=== PATIENT | male | born 1990 | race Caucasian/White ===

== ENCOUNTER 2019-02-17 21:12 | Emergency (ER) | payer MEDICAID ==
[~2019-02-17] VITALS: Ht 185.4 cm; Wt 172.3 kg
[~2019-02-17 21:12] MED LIST: ACET500C5 PO; CEPH-443 PO; HYDR25TA6 PO; IBUP800T48 PO; LISI-471 PO; PHEN-538 PO; SULF1TAB31 PO
[2019-02-17 21:19] VITALS: Ht 185.4 cm; Wt 172.3 kg
[2019-02-17] MEDS ORDERED: ACETAMINOPHEN 500 MG TAB PO STA (21:30)
[2019-02-17] MEDS ORDERED: morphine 4 MG/ML VIAL IV STA (21:30)
[2019-02-17] MEDS ORDERED: SOD CHLORIDE 0.9% 1,000 ML IV STA (21:30)
[2019-02-17] MEDS ORDERED: IBUPROFEN 800 MG TAB PO ONE (21:30)
[2019-02-17] MEDS ORDERED: ONDANSETRON 4 MG INJ IV STA (21:30)
[2019-02-17] MEDS ORDERED: SODIUM CHLORIDE 0.9% 1L BAG IV* STA (21:38)
[2019-02-17] MEDS ORDERED: CEFTRIAXONE 1 GM/50 ML (PMX) 50 ML IVPB ONE (23:00)
[2019-02-17 23:30] VITALS: BP 138/73; PULSE 93; RESP 18
--- NOTE | 2019-02-17 23:52 | ERD ---
ER Documentation Chief Complaint Chief Complaint C/O MILLER, GENERALIZED CP, FEVER AND CHILLS X2 DAYS, LT LOWER LEG BRUISES HPI This is a 29-year-old male with no past medical history. The patient indicates for the past 48 hours he has been experiencing generalized myalgias, palpitations, bandlike headache, frequency urgency and dysuria as well as tactile fever shaking and chills. He did indicate prior to the onset of symptoms he had consumed a significant amount of alcohol with friends. He noticed some bruising over the left lower extremity but denies any specific trauma that occurred. He denies any pain of the left leg. He denies any hemoptysis hematemesis or melanotic stools. He did take Motrin and Tylenol 12 hours prior to arrival. He complains of a sore throat. He denies any neck pain. He states he does not experience any confusion, no recent travel, no shortness of breath, no recent hospitalizations or sick contacts. ROS All systems reviewed and are negative except as per history of present illness. Allergies Allergies: Coded Allergies: No Known Allergy (Unverified , 02/17/19) PMhx/Soc Medical and Surgical Hx: pt denies Medical Hx, pt denies Surgical Hx Hx Alcohol Use: No Hx Substance Use: Yes Hx Tobacco Use: No Smoking Status: Former smoker Physical Exam Vitals Vital Signs Date Temp Pulse Resp B/P (MAP) Pulse Ox O2 O2 Flow FiO2 Time Delivery Rate 02/17/19 98.2 23:23 02/17/19 109 26 156/84 92 Room Air 22:40 (108) 02/17/19 100.6 125 22 176/89 99 21:19 (118) Physical Exam Constitutional:Well-developed. Well-nourished. HEENT:Normocephalic. Atraumatic.Pupils were equal round reactive to light. Moist mucous membranes.exudates in the right tonsil with erythema in both tonsils. Uvula was midline. No trismus. No macroglossia. Neck: No nuchal rigidity. No lymphadenopathy. No posterior cervical spine tenderness or step-offs. Respiratory: Not using accessory muscles of respiration.Lungs were clear to auscultation bilaterally. No rhonchi. No rales. No wheezing. Cardiovascular: Tachycardic with regular rhythm.No murmurs. No rubs were ap preciated.S1, S2 normal. Distal pulses are palpable 2+ bilaterally. GI: Abdomen was obese so exam is limited due to body habitus. Nontender. Non Distended. No pulsatile abdominal masses or bruits. No rebound. No guarding. Bowel sounds were present and normal. Muscle skeletal: Full range of motion of both the upper and lower extremities bilaterally.Normal muscle tone.No assymetrical calf tenderness or swelling. Skin: No petechia, no purpura. No lesions on the palms or the soles of the feet. No maculopapular rash. Ecchymosis over the distal anterior third of the left lower extremity. Homans sign negative bilaterally. NEURO: Patient was alert, awake, orientated x3.No facial droop. Gait observed and normal with no ataxia.Speech had regular rate and rhythm. No focal neurological deficits. Result Diagram: 02/17/19214202/17/192142 Results 24 hrs Laboratory Tests Test 02/17/19 21:41 02/17/19 21:43 POC Venous Lactate 1.1 mmol/L White Blood Count 13.5 10^3/ul Red Blood Count 4.94 10^6/ul Hemoglobin 13.1 g/dl Hematocrit 41.5 % Mean Corpuscular Volume 84.0 fl Mean Corpuscular Hemoglobin 26.5 pg Mean Corpuscular Hemoglobin Concent 31.6 g/dl Red Cell Distribution Width 14.6 % Platelet Count 224 10^3/UL Mean Platelet Volume 10.9 fl Immature Granulocytes % 0.300 % Neutrophils % 84.4 % Lymphocytes % 8.1 % Monocytes % 7.0 % Eosinophils % 0.0 % Basophils % 0.2 % Nucleated Red Blood Cells % 0.0 /100WBC Immature Granulocytes # 0.040 10^3/ul Neutrophils # 11.4 10^3/ul Lymphocytes # 1.1 10^3/ul Monocytes # 0.9 10^3/ul Eosinophils # 0.0 10^3/ul Basophils # 0.0 10^3/ul Nucleated Red Blood Cells # 0.0 10^3/ul Prothrombin Time 14.3 Sec Prothrombin Time Ratio 1.1 INR International Normalized Ratio 1.10 Activated Partial Thromboplast Time 31.7 Sec Urine Color MEMO Urine Clarity SLIGHTLY CLOUDY Urine pH 6.0 Urine Specific [place] 1.020 Urine Ketones NEGATIVE mg/dL Urine Nitrite NEGATIVE mg/dL Urine Bilirubin NEGATIVE mg/dL Urine Urobilinogen 2+ mg/dL Urine Leukocyte Esterase 3+ Madeline/ul Urine Microscopic RBC 11 /HPF Urine Microscopic WBC 115 /HPF Urine Squamous Epithelial Cells FEW /HPF Urine Amorphous Crystals FEW /HPF Urine Bacteria FEW /HPF Urine Mucus FEW /HPF Urine Hemoglobin NEGATIVE mg/dL Urine Glucose NEGATIVE mg/dL Urine Total Protein 1+ mg/dl Sodium Level 140 mmol/L Potassium Level 3.4 mmol/L Chloride Level 101 mmol/L Carbon Dioxide Level 28 mmol/L Anion Gap 11 Blood Urea Nitrogen 13 mg/dl Creatinine 0.87 mg/dl Est Glomerular Filtrat Rate mL/min > 60 mL/min Glucose Level 107 mg/dl Calcium Level 9.0 mg/dl Total Bilirubin 0.9 mg/dl Direct Bilirubin 0.00 mg/dl Indirect Bilirubin 0.9 mg/dl Aspartate Amino Transf (AST/SGOT) 61 IU/L Alanine Aminotransferase (ALT/SGPT) 116 IU/L Alkaline Phosphatase 162 IU/L Troponin I 0.027 ng/ml Total Protein 8.9 g/dl Albumin 4.7 g/dl Globulin 4.20 g/dl Albumin/Globulin Ratio 1.11 Amylase Level 71 U/L Lipase 87 U/L Ethyl Alcohol Level < 10.0 mg/dl Current Medications Medications Dose Sig/Bing Start Time Status Last (Trade) Ordered Route PRN Stop Time Admin Dose Reason Admin Sodium 1,000 ml @ Q1H STAT 02/17/19 DC 02/17/19 Chloride 1,000 mls/hr IV 21:30 02/17/19 21:59 22:29 Morphine 4 mg ONCE STAT 02/17/19 DC 02/17/19 Sulfate IV 21:30 02/17/19 22:01 (morphine) 21:35 Ondansetron 4 mg ONCE STAT 02/17/19 DC 02/17/19 HCl (Zofran IV 21:30 02/17/19 22:01 Inj) 21:35 1,000 mg ONCE STAT 02/17/19 DC 02/17/19 Acetaminophen PO 21:30 02/17/19 22:00 (Tylenol 21:35 Tab) Ibuprofen 800 mg ONCE ONCE 02/17/19 DC 02/17/19 (Motrin) PO 21:30 02/17/19 22:01 21:35 Sodium 2,400 ml BOLUS OVER 2 02/17/19 DC 8/6/19 Chloride HOURS STAT 21:38 02/17/19 22:00 (NS) IV* 21:40 Ceftriaxone 50 ml @ ONCE ONCE 02/17/19 DC 02/17/19 Sodium 100 mls/hr IVPB 23:00 02/17/19 23:22 23:29 Procedures/MDM This is a 29-year-old who presented to the emergency department with Sirs criteria. The patient was immediately placed in a bus driver/monitor continuous pulse oximetry and IV access was established by nursing staff. The patient's lactic acid was within normal limits and therefore the patient was not septic. 12 Lead EKG tracing ordered and reviewed by myself showed: Sinus tachycardia 117 bpm and no arrhythmia. SC interval normal. QRS duration normal. No ST segment elevation No ST segment depression. No changes consistent with acute ischemia. I obtained a chest radiograph reviewed by myself the radiologist and there is no evidence of pneumonia as there were no infiltrates. There is no pneumothorax or pleural effusions. The patient did have ecchymosis of the lower extremity but there is no throm bocytopenia no coagulopathic or physical exam findings to suggest DIC. I did indicate this could have occurred while the patient was clinically intoxicated several days ago and there is no evidence of bony abnormality so no radiographic imaging was obtained. The patient leukocytosis with a left shift and I did feel symptoms are secondary to urinary tract infection. There was a significant amount of diarrhea in the patient's urine. He did receive IV ceftriaxone after blood culture and urine c ultures were obtained. There was also hematuria. Ultrasound of the kidneys indicated no evidence of hydronephrosis. The patient received antipyretics. He was also given intravenous morphine and Zofran for analgesia control. The patient had significant improvement of symptoms and stated he felt comfortable being discharged home and will be discharged home with Keflex. The patient did have an exudate on his tonsil and a rapid strep test that was performed. However utilizing the center criteria I felt this is more likely a viral etiology versus a bacterial process. There is no evidence of Johnathon angina. Critical Care: Time: 45 minutes Treatments/Evaluations: Close monitoring and treatment of unstable vital signs, cardiorespiratory, and neurologic status, while maintaining tight balance of fluid, respiratory, and cardiac interventions. Time does not include performing any of the above billable procedures. Departure Diagnosis: Primary Impression: Pyelonephritis Additional Impressions: Ecchymosis Pharyngitis, acute Pharyngitis/tonsillitis etiology: unspecified etiology Qualified Codes: J02.9 - Acute pharyngitis, unspecified Condition: PAWEL Snider MD Feb 17, 2019 23:52
[2019-02-17] MEDS ORDERED: KETOROLAC 30 MG INJ IV STA (23:57)
== END 2019-02-18 00:17 | disposition home or self-care (01) ==
LOC: E/R 21:12
DX: N12 Tubulo-interstitial nephritis, not specified as acute or chronic (principal); J02.9 Acute pharyngitis, unspecified; R07.9 Chest pain, unspecified; Z87.891 Personal history of nicotine dependence
CPT/HCPCS: 71045; 76775; 80053; 80307; 81001; 82150; 83605; 83690; 84484; 85025; 85610; 85730; 87040; 87086; 87880; 93005; 96361; 96374; 96375; J0696; J1885; J2270; J2405; J7030; Z7502; Z7610

== ENCOUNTER 2019-02-20 06:29 | Inpatient (IN) | payer MEDICAID ==
[~2019-02-20] VITALS: Ht 185.4 cm; Wt 171.6 kg
[2019-02-20] MEDS ORDERED: SODIUM CHLORIDE 0.9% 1L BAG IV* STA (06:59)
[2019-02-20] MEDS ORDERED: ACETAMINOPHEN 325 MG TAB PO STA (06:59)
[2019-02-20] MEDS ORDERED: VANCOMYCIN 1 GM (PMX) 250 ML IVPB STA (06:59)
[2019-02-20] MEDS ORDERED: MEROPENEM 1 GM/50ML(PMX) 50 ML IVPB STA (06:59)
[2019-02-20] MEDS ORDERED: CIPROFLOXACIN 400MG/D5W 200 ML IVPB STA (06:59)
--- NOTE | 2019-02-20 07:41 | ERD ---
ER Documentation Chief Complaint Chief Complaint BODYACHES, FEVER, TACHYCARDIC, SOB, LOW O2 SAT, REDNESS ON LEFT LOWER EXT HPI 29-year-old male with history of alcohol abuse, drinks about two 12 packs of beer per day, presents the ED complaining of fever, shortness of breath and palpitations. Patient was seen in the ED on 02/17/2019 for similar symptoms and diagnosed with pyelonephritis and discharged with antibiotics but symptoms have been worsening. Mild nonproductive cough. No hemoptysis. In triage he complained of chest pain but he further qualifies this feeling of shortness of breath but not actual pain. Denies abdominal pain, nausea, vomiting, diarrhea or constipation. Denies dysuria, polyuria, hematuria or flank pain. Mild lower extremity swelling with worsening, red, nonpainful rash on his left leg. Denies headache or neck pain. Subjective fevers and chills. ROS All systems reviewed and are negative except as per history of present illness. Medications Home Meds Active Scripts Sulfamethoxazole/Trimethoprim* (Bactrim Ds* Tablet) 1 Each Tablet, 1 TAB PO BID for 10 Days, #20 TAB Prov:CARMEN LY MD 02/22/19 Hydrochlorothiazide* (Hydrochlorothiazide*) 25 Mg Tab, 25 MG PO DAILY@0600 for 30 Days, #30 TAB For blood pressure Prov:CARMEN LY MD 02/22/19 Lisinopril* (Lisinopril*) 20 Mg Tablet, 40 MG PO DAILY for 30 Days, #30 TAB 1 Refill For blood pressure Prov:CARMEN LY MD 02/22/19 Phenazopyridine Hcl* (Pyridium*) 200 Mg Tab, 200 MG PO TID PRN for URINARY PAIN, #6 TAB Prov:PAWEL MUNOZ MD 02/17/19 Acetaminophen* (Tylophen*) 500 Mg Capsule, 2 CAP PO Q8H PRN for PAIN AND OR ELEVATED TEMP, #30 CAP Prov:PAWEL MUNOZ MD 02/17/19 Ibuprofen* (Motrin*) 800 Mg Tab, 800 MG PO Q6H PRN for PAIN AND OR ELEVATED TEMP, #30 TAB Prov:PAWEL MUNOZ MD 02/17/19 Discontinued Scripts Cephalexin* (Keflex*) 500 Mg Capsule, 500 MG PO QID for 10 Days, CAP Prov:PAWEL MUNOZ MD 02/17/19 Allergies Allergies: Coded Allergies: No Known Allergy (Unverified , 02/20/19) PMhx/Soc History of Surgery: No Anesthesia Reaction: No Hx Neurological Disorder: No Hx Respiratory Disorders: No Hx Cardiac Disorders: No Hx Psychiatric Problems: No Hx Miscellaneous Medical Probl: No Hx Alcohol Use: No Hx Substance Use: Yes Hx Tobacco Use: Yes Smoking Status: Current every day smoker FmHx No heart disease, stroke or cancer. Physical Exam Vitals Temp:100.7 Pulse:120 RR: 18 BP: 177/98 Pulse Ox: 84% Physical Exam Const: Mild distress Head: Atraumatic Eyes: Normal Conjunctiva ENT: Normal External Ears, Nose and Mouth. Neck: Full range of motion. No meningismus. Resp: Clear to auscultation bilaterally Cardio: Regular rate and rhythm, no murmurs Abd: Soft, obese, non tender, non distended. Normal bowel sounds Skin: No petechiae or rashes Back: No midline or flank tenderness Ext: LLE erythema and mild tenderness. No crepitus. Neur: Awake and alert Psych: Normal Mood and Affect Result Diagram: 02/22/19 0538 02/22/19 0538 Results 24 hrs Laboratory Tests Test 02/20/19 06:58 02/20/19 07:02 02/20/19 08:00 02/20/19 08:55 White Blood Count 10.2 10^3/ul Red Blood Count 4.28 10^6/ul Hemoglobin 11.5 g/dl Hematocrit 35.8 % Mean Corpuscular 83.6 fl Volume Mean Corpuscular 26.9 pg Hemoglobin Mean Corpuscular 32.1 g/dl Hemoglobin Concent Red Cell 14.7 % Distribution Width Platelet Count 226 10^3/UL Mean Platelet 11.3 fl Volume Immature 0.700 % Granulocytes % Neutrophils % 77.4 % Lymphocytes % 13.2 % Monocytes % 8.4 % Eosinophils % 0.0 % Basophils % 0.3 % Nucleated Red Blood 0.0 /100WBC Cells % Immature 0.070 10^3/ul Granulocytes # Neutrophils # 7.9 10^3/ul Lymphocytes # 1.4 10^3/ul Monocytes # 0.9 10^3/ul Eosinophils # 0.0 10^3/ul Basophils # 0.0 10^3/ul Nucleated Red Blood 0.0 10^3/ul Cells # Prothrombin Time 14.9 Sec Prothrombin Time 1.2 Ratio INR International 1.16 Normalized Ratio Activated 37.4 Sec Partial Thromboplas t Time D-Dimer 799.23 ng/ml D-Dimer Comment Sodium Level 138 mmol/L Potassium Level 3.1 mmol/L Chloride Level 99 mmol/L Carbon Dioxide 31 mmol/L Level Anion Gap 8 Blood Urea Nitrogen 10 mg/dl Creatinine 0.82 mg/dl Est Glomerular > 60 mL/min Filtrat Rate mL/min Glucose Level 142 mg/dl Calcium Level 8.7 mg/dl Total Bilirubin 1.2 mg/dl Direct Bilirubin 0.00 mg/dl Indirect Bilirubin 1.2 mg/dl Aspartate Amino 58 IU/L Transf (AST/SGOT) Alanine 117 IU/L Aminotransferase (A LT/SGPT) Alkaline 165 IU/L Phosphatase Troponin I 0.049 ng/ml C-Reactive Protein 22.4 mg/dl B-Type Natriuretic 937 PG/ML Peptide Total Protein 8.1 g/dl Albumin 4.1 g/dl Globulin 4.00 g/dl Albumin/Globulin 1.02 Ratio POC Venous Lactate 0.9 mmol/L Urine Color YELLOW Urine Clarity CLEAR Urine pH 7.0 Urine Specific 1.003 [place] Urine Ketones NEGATIVE mg/dL Urine Nitrite NEGATIVE mg/dL Urine Bilirubin NEGATIVE mg/dL Urine Urobilinogen 2+ mg/dL Urine Leukocyte NEGATIVE Madeline/ul Esterase Urine Hemoglobin NEGATIVE mg/dL Urine Glucose NEGATIVE mg/dL Urine Total Protein NEGATIVE mg/dl Lactic Acid Level 1.1 mmol/L Current Medications Medications Dose Sig/Bing Start Time Status Last (Trade) Ordered Route PRN Stop Time Admin Dose Reason Admin 650 mg ONCE STAT 02/20/19 DC 02/20/19 Acetaminophen PO 06:59 02/20/19 07:13 (Tylenol 07:02 Tab) Sodium 2,400 ml BOLUS OVER 2 02/20/19 DC 02/20/19 Chloride HOURS STAT 06:59 02/20/19 07:13 (NS) IV* 07:02 Vancomycin 250 ml @ ONCE STAT 02/20/19 DC 02/20/19 HCl 125 mls/hr IVPB 06:59 02/20/19 08:08 08:58 50 ml @ ONCE STAT 02/20/19 DC 02/20/19 Meropenem/Sod 100 mls/hr IVPB 06:59 02/20/19 07:56 ium Chloride 07:28 200 ml @ ONCE STAT 02/20/19 DC 02/20/19 Ciprofloxacin 200 mls/hr IVPB 06:59 02/20/19 07:13 / Dextrose 07:58 Furosemide 20 mg ONCE ONCE 02/20/19 DC 02/20/19 (Lasix) IV 08:00 02/20/19 07:55 08:01 Potassium 40 meq ONCE ONCE 02/20/19 DC 02/20/19 Chloride PO 08:30 02/20/19 08:10 (Potassium 08:31 Chloride Pwd/Soln) IV Flush 10 ml STK-MED 02/20/19 DC 02/20/19 (NS 10 ml) ONCE .ROUTE 08:27 02/20/19 08:51 08:28 Sodium 100 ml @ ud STK-MED 02/20/19 DC 02/20/19 Chloride ONCE .ROUTE 08:27 02/20/19 08:51 08:28 Iohexol 100 ml @ ud STK-MED 02/20/19 DC 02/20/19 ONCE .ROUTE 08:27 02/20/19 08:52 08:28 Procedures/MDM DOCUMENTS REVIEWED: ED nurse, prior ED EKG: Time: 07:15. Sinus tachycardia. Ventricular rate 111. Normal NV and QRS. No acute ST segment elevation or depression. No ectopy. My Interpretation 3 LEAD RHYTHM STRIP INTERPRETATION: Time: 08:19. Sinus tachycardia. Ventricular rate 104. No ectopy. Indication: CHF. IMAGING: PROCEDURE: XR Chest. CLINICAL INDICATION: shortness of breath TECHNIQUE: Single portable view of the chest was obtained COMPARISON: None FINDINGS: There is mild cardiomegaly. There is moderate pulmonary vascular congestion. There are bilateral perihilar and lower lobe infiltrates, right greater than left. There is no pleural effusion.. There is no pneumothorax. RPTAT: AA IMPRESSION: Mild cardiomegaly with moderate pulmonary vascular congestion. .Gennaro Huddleston MD, MD Date Time Electronically viewed and signed by .Gennaro Huddleston MD, MD on 02/20/2019 07:26 .S/ PROCEDURE: US DVT. CLINICAL INDICATION: Swelling. Pain. TECHNIQUE: Multiple longitudinal and transverse images of the left lower extremity veins were obtained with saldaña scale and color Doppler imaging. 2D grayscale measurements with compression, color Doppler flow, and augmentation w as performed. COMPARISON: None. FINDINGS: The left common femoral, femoral and popliteal veins are patent and fully compressible. Color flow demonstrates normal filling of the vessel lumen. Normal waveforms are visualized and there is normal response to augmentation. The calf veins are equally normal. Incidental note is made of a prominent left inguinal lymph node measuring 12 mm in short axis. IMPRESSION: No evidence of acute deep venous thrombosis of the left lower extremity. RPTAT: QQ .Ashleigh Barrientos MD, MD Date Time Electronically viewed and signed by .Ashleigh Barrientos MD, on 02/20/2019 08:00 .T/ PROCEDURE: CTA Chest and pulmonary angiogram. CLINICAL INDICATION: Chest pain and shortness of breath. TECHNIQUE: CT scan of the chest and CT pulmonary angiogram was performed on a multidetector high-resolution CT scanner. High-resolution thin slice coronal and sagittal imaging was obtained from the axial source images. 3-D volumetric rendered post processing was performed as well. The patient was examined following the uncomplicated intravenous administration of 100 cc of Omnipaque- 300. The images were reviewed on a PACS workstation. The total exam CTDI equals 49.29, 19.99 mGy, and the total exam DLP equals 717 mGy-cm. DICOM images are available. One or more of the following dose reduction techniques were utilized: 1.) Automated exposure control 2.) Adjustment of the mA +/- kV according to patient's size 3.) Use of iterative reconstruction technique. COMPARISON: No prior studies are available for comparison. FINDINGS: CT chest: Patchy bilateral air space opacities. Findings are likely infectious or inflammatory in etiology (i.e. pulmonary edema, multifocal pneumonia, pulmonary hemorrhage). The mediastinum is unremarkable without evidence for mass or lymphadenopathy. The vascular structures of the mediastinum are normal in course and caliber. The heart size is mildly enlarged without pericardial thickening or effusion. The axillary, subpectoral, and supraclavicular regions are unremarkable. The surrounding chest wall is unremarkable. Imaging obtained through the upper abdomen is equally unremarkable. The osseous structures are unremarkable. CT pulmonary angiogram: There is poor contrast opacification of the pulmonary arteries secondary. The pulmonary arteries are normal in caliber and morphology. No filling defect is present to suggest pulmonary embolism. There is no evidence for pulmonary arterial hypertension. IMPRESSION: 1. No evidence for pulmonary embolism.. 2. Mild cardiomegaly. 3. Patchy bilateral air space opacities. Findings are likely infectious or inf lammatory in etiology (i.e. pulmonary edema, multifocal pneumonia, pulmonary hemorrhage). RPTAT: AA Physician Bill Date Time Electronically viewed and signed by Scott Payne Physician on 02/20/2019 09:12 NS/ MEDICAL DECISION MAKIN-year-old male with history of alcohol abuse, drinks about two 12 packs of beer per day, presents the ED complaining of fever, shortness of breath and palpitations. CBC is negative for leukocytosis, bandemia, anemia or thrombocytopenia. Chemistry significant for hypokalemia but no renal insufficiency or hyperglycemia. LFTs remarkable for transaminitis and hyperbilirubinemia. BNP is elevated at 937. CRP is elevated at 22.4. [id number] lactate is 0.9 mmol/L. D-dimer is elevated at 799.23. Troponin was in the reference range at 0.049. EKG reveals sinus tachycardia with no acute ischemic changes or ectopy. Chest x-ray shows cardiomegaly and bilateral interstitial infiltrates consistent with volume overload and congestive heart failure. Cardiac echo reveals normal ejection fraction. Patient presents with multiple criteria for systemic inflammatory response syndrome but no source of infection is definitively identified. No elevated lactate, hypotension or criteria septic shock. Normal saline 30 cc/kg fluid bolus was initially ordered but discontinued after chest x-ray showed volume overload and Lasix 20 mg IV was given. Broad-spectrum antibiotics administered after cultures. Patient with rash to left lower extremity of uncertain etiology. Venous Doppler lower extremity is negative. Possible cellulitis but no no signs of necrotizing fasciitis or ascending lymphangitis. Chest CT reveals bilateral interstitial infiltrates and as the echo is negative likely infectious in etiology. No pulmonary embolism. Patient's infectious symptoms have not stabilized and the patient is at risk of rapid decompensation. The patient will be admitted for cardiology consultation, antibiotic therapy, and infectious source control. Severe Sepsis criteria: Infectious source: Unclear, pneumonia vs cellulitis End organ damage indicated by: Acute Resp Failure (sat < 92% w/o oxygen) Sepsis Management: Time of recognition of severe sepsis: 637 Within 1 hours of recognition: Blood cultures x 2 before broad-spectrum antibiotics: Yes 30 ml/kg NS bolus initiated but discontinued after chest x-ray showed volume overload. Initial lactate 0.9 mils per liter Repeat lactate Not indicated as initial lactate < 2.0 Septic Shock Assessment: Any lactic acid > 4.0 No Persistent hypotension (SBP < 90 or 40 mmHg drop, MAP < 65) despite 30 mL/kg IV fluid bolus No A focused sepsis perfusion/reperfusion reassessment examination was performed post 30ml/kg bolus @ : 08:55 Temp [], BP 175/105, HR 106, RR 18, Pox 98% Persistent Hypotension Treatment: Comfort care No Hypotension caused by: pt. baseline, med-induced, erroneous value, condition other than infection No Refusal by patient/decision maker for: blood draw, IVF, Antibiotics, Pressors No Central line not indicated Critical Care Time: 35 minutes Treatments/Evaluations: Close monitoring and treatment of unstable vital signs, cardiorespiratory, and neurologic status, while maintaining tight balance of fluid, respiratory, and cardiac interventions. This includes the administration of emergency fluid management while maintaining close respiratory support as well as the provision of immediate and broad-spectrum antibiotic therapy, while performing a simultaneous assessment for possible sources in order to direct ta rgeted therapy. This time includes discussing the case with the patient and the patient's family. This time also includes the consideration for invasive and chemical support to prevent cardiopulmonary collapse. This time does not include all procedures stated elsewhere in this record. This time also includes reviewing old records, labs and radiological studies. This time includes examining and re-examining the patient. Additionally, this time also includes arranging care with admitting and consulting physicians. CALLS/CONSULTS: Dr. Barber. Will consult on cardiac echo. PATIENT CARE TRANSITIONED: Time: 838, Dr. Quinonez. Counseled patient regarding diagnosis, diagnostic results and plan for admission. Departure Diagnosis: Primary Impression: Fever Fever type: unspecified Qualified Codes: R50.9 - Fever, unspecified Additional Impressions: Pneumonia Pneumonia type: due to unspecified organism Laterality: bilateral Lung location: unspecified part of lung Qualified Codes: J18.9 - Pneumonia, unspecified organism Cellulitis of left lower extremity Sepsis Sepsis type: sepsis due to unspecified organism Sepsis acute organ dys function status: without acute organ dysfunction Qualified Codes: A41.9 - Sepsis, unspecified organism Condition: Serious MARIANN BRIONES MD Feb 20, 2019 07:41
[2019-02-20] MEDS ORDERED: FUROSEMIDE 20 MG INJ IV ONE ×2 (08:00→13:30)
[2019-02-20] MEDS ORDERED: IOHEXOL 100 ML ONE (08:27)
[2019-02-20] MEDS ORDERED: SOD CHLORIDE 0.9% 100 ML ONE (08:27)
[2019-02-20] MEDS ORDERED: POTASSIUM CHLORIDE 20 MEQ POWDER FOR ORAL SOLN PO ONE (08:30)
[2019-02-20] MEDS ORDERED: ONDANSETRON 4 MG INJ IV PRN (09:30)
[2019-02-20] MEDS ORDERED: ACETAMINOPHEN 325 MG TAB PO PRN ×2 (09:30→21:30)
--- NOTE | 2019-02-20 09:48 | RADRPT ---
Echocardiogram Report Patient Name: MORENA WHITEHEADPatient ID: [id number] : 1990 (29y 1m)Study Date: 02/20/2019 8:58:34 AM Gender: MAccession #: [id number] Tech: NathanJaya Webster RODO Location: [facility] Ref.Physician: MARIANN BRIONES Height(Cm): BSA: Weight(Kg): Quality: Technically Difficult StudyOrder Physician: MARIANN BRIONES Account #: Procedures: Echocardiographic Report: Transthoracic echocardiogram with complete 2D, M-Mode, and doppler examination. Indications: Congestive Heart Failure. Measurements: 2D/M Mode Doppler Measurement Value Normal Range Measurement Value Normal Range LVIDd 2D 5.1 [ 4.2 - 5.8 ] cm AV Peak Mushtaq 1.3 [ 100.0 - 170.0 ] cm/sec LVIDs 2D 3.2 [ 2.5 - 4.0 ] cm AV Peak PG 7.0 [ 2.0 - 9.0 ] mmHg LVPWd 2D 1.1 [ 0.6 - 1.0 ] cm LVOT Peak Mushtaq 1.1 [ 70.0 - 110.0 ] cm/sec IVSd 2D 1.2 [ 0.6 - 1.0 ] cm LVOT Peak PG 5.0 [ 2.0 - 6.0 ] mmHg AoR Diam 2D 3.2 [ 2.6 - 3.4 ] cm Lat E` Mushtaq 0.2 [ 10.0 - 15.0 ] cm/sec EDV 2D 122.0 [ 62.0 - 150.0 ] ml Med E` Mushtaq 0.1 cm/sec ESV 2D 40.0 [ 21.0 - 61.0 ] ml TR Peak Mushtaq 2.4 [ 100.0 - 280.0 ] cm/sec EF 2D 67.2 [ 52.0 - 72.0 ] percent TR Peak PG 23.0 mmHg LA Dimen 2D 4.2 [ 3.0 - 4.0 ] cm RVSP 26.0 [ 10.0 - 36.0 ] mmHg RA Pressure 3.0 mmHg Findings: Left Ventricle: Normal left ventricular systolic function. Normal left ventricular cavity size. Mild concentric left ventricular hypertrophy. Ejection fraction is visually estimated at 60 %. Tissue Doppler/Mitral Doppler indices are within normal limits. Right Ventricle: Normal right ventricular size. Normal right ventricular systolic function. Left Atrium: The left atrium is normal in size. Right Atrium: The right atrium is normal in size. Mitral Valve: Normal appearance of the mitral valve. Normal appearance and function of the mitral valve with trace physiologic regurgitation. Aortic Valve: Normal appearance of the aortic valve. No significant aortic stenosis or insufficiency. Tricuspid Valve: Normal appearance and function of the tricuspid valve with trace physiologic regurgitation. The estimated Peak RVSP is 26 mmHg. Pulmonic Valve: Pulmonic valve not well visualized. Pericardium: Normal pericardium with no significant pericardial effusion. Aorta: Normal aortic root. IVC: Normal size and normal respiratory collapse consistent with normal right atrial pressure. Conclusions: Technically difficult study with poor endocardial visualization in apical views. Normal left ventricular systolic function. Normal left ventricular cavity size. Mild concentric left ventricular hypertrophy. Ejection fraction is visually estimated at 60 %. Tissue Doppler/Mitral Doppler indices are within normal limits. No significant valvular stenosis or regurgitation seen. The estimated Peak RVSP is 26 mmHg. Normal size and normal respiratory collapse consistent with normal right atrial pressure. Electronically Signed By: Tay Barber 2019-02-20 09:47:42 PDT
[2019-02-20 11:21] VITALS: BP 169/79; PULSE 103; RESP 19
[2019-02-20 11:23] VITALS: Ht 185.4 cm; Wt 171.6 kg
--- NOTE | 2019-02-20 13:09 | HP ---
Date/Time of Note Date/Time of Note DATE: 02/20/19 TIME: 12:59 Assessment/Plan VTE Prophylaxis Pharmacological prophylaxis: LMWH Lines/Catheters IV [facility]ter [facility] (from [facility]): Saline Lock Assessment/Plan Hospital Course 29-year-old morbidly obese male who had presented to the emergency room with body aches, fever tachycardia and shortness of breath at nighttime and with exertion. Per report he also has a history of alcohol abuse. He is currently admitted and managed as follows: 1. Sepsis likely secondary to left lower extremity cellulitis associated with mild pneumonia 2. Shortness of breath secondary to pneumonia 3. Morbid obesity 4. Left lower Extremity cellulitis 5. Multifocal community-acquired pneumonia 6. Probable obstructive sleep apnea versus obesity hypoventilation syndrome -contributing to respiratory insufficiency 7. Chronic transaminitis with mild hyperbilirubinemia secondary to fatty liver 8. Hypokalemia 9. Alcohol abuse 10. Marijauna user Plan: Begin empiric antibiotics, gentle diuresis. Use vancomycin and Levaquin for now, we can downgrade antibiotics after initial cultures. Follow-up blood and respiratory cultures. Patient also was just diagnosed with a urinary tract infection, follow-up repeat urine cultures nursery worker consultation to provide resources to help with alcohol abuse CPAP at bedtime Will need outpatient sleep study Calorie controlled diet Screen for diabetes mellitus and thyroid disease Further interventions per course. Result Diagram: 02/20/19 0658 02/20/19 0658 Results 24hrs Laboratory Tests Test 02/20/19 06:58 02/20/19 07:02 02/20/19 08:00 02/20/19 08:55 White Blood Count 10.2 # Red Blood Count 4.28 L Hemoglobin 11.5 L Hematocrit 35.8 L Mean Corpuscular Volume 83.6 Mean Corpuscular 26.9 L Hemoglobin Mean Corpuscular 32.1 Hemoglobin Concent Red Cell Distribution 14.7 H Width Platelet Count 226 Mean Platelet Volume 11.3 H Immature Granulocytes % 0.700 H Neutrophils % 77.4 H Lymphocytes % 13.2 L Monocytes % 8.4 Eosinophils % 0.0 Basophils % 0.3 Nucleated Red Blood 0.0 Cells % Immature Granulocytes # 0.070 H Neutrophils # 7.9 H Lymphocytes # 1.4 Monocytes # 0.9 Eosinophils # 0.0 Basophils # 0.0 Nucleated Red Blood 0.0 Cells # Prothrombin Time 14.9 Prothrombin Time Ratio 1.2 INR International 1.16 Normalized Ratio Activated 37.4 H Partial Thromboplast Time D-Dimer 799.23 H D-Dimer Comment Sodium Level 138 Potassium Level 3.1 L Chloride Level 99 Carbon Dioxide Level 31 Anion Gap 8 Blood Urea Nitrogen 10 Creatinine 0.82 Est Glomerular Filtrat > 60 Rate mL/min Glucose Level 142 Calcium Level 8.7 Total Bilirubin 1.2 Direct Bilirubin 0.00 Indirect Bilirubin 1.2 H Aspartate Amino 58 H Transf (AST/SGOT) Alanine 117 H Aminotransferase (ALT/SG PT) Alkaline Phosphatase 165 H Troponin I 0.049 C-Reactive Protein 22.4 H B-Type Natriuretic 937 H Peptide Total Protein 8.1 Albumin 4.1 Globulin 4.00 H Albumin/Globulin Ratio 1.02 POC Venous Lactate 0.9 Urine Color YELLOW Urine Clarity CLEAR Urine pH 7.0 Urine Specific [place] 1.003 Urine Ketones NEGATIVE Urine Nitrite NEGATIVE Urine Bilirubin NEGATIVE Urine Urobilinogen 2+ H Urine Leukocyte Esterase NEGATIVE Urine Hemoglobin NEGATIVE Urine Glucose NEGATIVE Urine Total Protein NEGATIVE Lactic Acid Level 1.1 Test 02/20/19 11:49 Lactic Acid Level 0.9 HPI/ROS Admit Date/Time Admit Date/Time Feb 20, 2019 at 09:14 Hx of Present Illness 29-year-old male who had presented to the emergency room with a 4 to 5-day history of worsening fever, lethargy and shortness of breath especially with exertion also limiting his ability to sleep. Patient does have a history of heavy alcohol use but no other significant past medical history. He is also morbidly obese. He came to the emergency room 4 days ago with similar symptoms and was treated for urinary tract infection. Of note is that he has a significant cellulitis in his left leg in the midportion, and he states that again that has been going on for about the past 4 days. Is localized only to his left leg though. It does not limit ambulation, he does not have pain out of proportion to touch. ROS 12 point review of system was done, pertinent findings as noted. PMH/Family/Social Past Medical History Medical History: no pertinent history Coded Allergies: No Known Allergy (Unverified , 02/20/19) Past Surgical History Past Surgical Hx: no surgical history Family History Significant Family History: no pertinent family hx Social History Alcohol Use: heavy Smoking Status: Current every day smoker (marijuana) Drug Use: marijuana Exam/Review of Systems Vital Signs Vitals Vital Signs Date Temp Pulse Resp B/P (MAP) Pulse Ox O2 O2 Flow FiO2 Time Delivery Rate 02/20/19 Nasal 2.0 11:31 Cannula 02/20/19 98.8 103 19 169/79 96 11:21 (109) Exam Exam General: A&O x3, answering questions appropriately, morbidly obese HEENT: NC/ AT. PERRL. EOM intact Neck: supple CVS: S1, S2, RRR. no murmurs. no pain on chest wall palpation Lungs: CTA b/l. no wheezing or rhonchi, but diminished ++ Abd: soft, nontender, +BS, obese Ext: moving all extremities skin: The mid left leg is circumferentially erythematous, mildly swollen and mildly tender to touch. Of note is that patient has diffuse hyperpigmentation changes from a lot of skin itching he says as a child. Additional Comments Chest x-ray, renal ultrasound, x-ray of the tibia-fibula, lower extremity venous Doppler, CTA, and gallbladder ultrasound all reviewed. EKG was also reviewed and patient with sinus tachycardia SOY HOANG Feb 20, 2019 13:09
[2019-02-20] MEDS ORDERED: VANCOMYCIN IV PER PHARMACY XX SCH (13:30)
[2019-02-20] MEDS ORDERED: VANCOMYCIN HCL 2 GM in SOD CHLORIDE 0.9% 500 ML IVPB SCH (14:00)
[2019-02-20] MEDS: LEVOFLOXACIN 500MG/D5W (PMX) 100 ML IVPB SCH (14:21)
[2019-02-20 15:07] VITALS: BP 186/96; PULSE 117; RESP 19
[2019-02-20] MEDS: LISINOPRIL 20 MG TAB PO SCH (16:32)
[2019-02-20] MEDS: HYDROCHLOROTHIAZIDE 25 MG TAB PO SCH (16:32)
[2019-02-20 19:50] VITALS: BP 188/97; PULSE 122; RESP 20
[2019-02-20] MEDS: hydrALAzine 20 MG INJ IV PRN (21:12)
[2019-02-20] MEDS: DOCUSATE SODIUM 100 MG CAP PO SCH (21:57)
[2019-02-20] MEDS: LACTOBACILLUS RHAMNOSUS CAP PO SCH (21:57)
[2019-02-20 23:34] VITALS: PULSE 101
[2019-02-21] VITALS (7 sets, daily range): BP systolic 110–175; BP diastolic 53–106; PULSE 91–112; RESP 17–24
[2019-02-21] MEDS: hydrALAzine 20 MG INJ IV PRN (00:28)
[2019-02-21] MEDS: VANCOMYCIN 1.5 GM/NS 250 ML 250 ML IVPB SCH ×4 (00:37→22:14)
[2019-02-21] MEDS: HYDROCHLOROTHIAZIDE 25 MG TAB PO SCH (06:16)
[2019-02-21] MEDS: DOCUSATE SODIUM 100 MG CAP PO SCH ×2 (08:22→22:14)
[2019-02-21] MEDS: FAMOTIDINE 20 MG TAB PO SCH (08:22)
[2019-02-21] MEDS: LACTOBACILLUS RHAMNOSUS CAP PO SCH ×2 (08:22→22:14)
[2019-02-21] MEDS: ENOXAPARIN 40 MG/0.4 ML SYG SC SCH (08:22)
[2019-02-21] MEDS: LISINOPRIL 20 MG TAB PO SCH (08:22)
[2019-02-21] MEDS ORDERED: FUROSEMIDE 40 MG INJ IV ONE (09:00)
[2019-02-21] MEDS ORDERED: POTASSIUM CHLORIDE (SR) 20 MEQ TAB PO STA (09:34)
[2019-02-21] MEDS ORDERED: LISINOPRIL 20 MG TAB PO ONE (10:00)
[2019-02-21] MEDS: POTASSIUM CHLORIDE 100 ML IVPB SCH ×2 (10:09→12:50)
--- NOTE | 2019-02-21 10:25 | PN ---
Date/Time of Note Date/Time of Note DATE: 02/21/19 TIME: 10:10 Assessment/Plan VTE Prophylaxis [place] [facility]: 4 SCD applied [place] [facility] SCD contraindicated: low risk/ambulating Pharmacological prophylaxis: heparin Pharm contraindication: low risk/ambulating Lines/Catheters [facility] Saline Lock Assessment/Plan Problems: (1) Cellulitis of left lower extremity Status: Acute Comment: Improved remarkably from admission based on regression from the inked margins. (2) Sepsis Status: Acute Comment: Marked fevers tachycardia etc. Now improving nicely with IV antibiotic therapy. Please note I am not certain that I believe that he had significant memory disease I believe that the left lower extremity is a source of this Qualifiers: Sepsis type: sepsis due to unspecified organism Sepsis acute organ dysfunction status: without acute organ dysfunction Qualified Codes: A41.9 - Sepsis, unspecified organism (3) Hypertension Comment: Patient reports he was unaware of the blood pressure elevation his last check was over a year ago. He however admits that he is gained 15 to 20 pounds in that timeframe. Given the hypokalemia with hypertension and to go ahead and use RADHA inhibitor to help control the spinomuscular check aldosterone and plasma renin activity after correction of the potassium (4) Hypokalemia Status: Acute Comment: Correcting now (5) Morbid obesity with BMI of 45.0-49.9, adult Status: Chronic Comment: Counseled (6) Pneumonia Status: Acute Comment: Amount of 100% certain that the radiology interpretations which are somewhat vague on this truly represented an acute pneumonic process as opposed to some fluid distributions. We can recheck a formalized two-view chest x-ray tomorrow, if needed. Please note however the patient symptomatically is without pulmonary symptoms Qualifiers: Pneumonia type: due to unspecified organism Laterality: bilateral Lung location: unspecified part of lung Qualified Codes: J18.9 - Pneumonia, unspecified organism (7) Fatty infiltration of liver Status: Chronic Comment: May be due to his weight and alcohol consumption. He has been counseled (8) Alcohol abuse Status: Chronic Comment: Ministration of thiamine Result Diagram: 02/21/19 0518 02/21/19 0518 Results 24hrs Laboratory Tests Test 02/20/19 11:49 02/21/19 05:18 02/21/19 05:19 Lactic Acid Level 0.9 White Blood Count 8.3 Red Blood Count 4.46 L Hemoglobin 11.9 L Hematocrit 37.9 L Mean Corpuscular Volume 85.0 Mean Corpuscular Hemoglobin 26.7 L Mean Corpuscular Hemoglobin Concent 31.4 L Red Cell Distribution Width 15.2 H Platelet Count 249 Mean Platelet Volume 11.1 H Immature Granulocytes % 0.700 H Neutrophils % 69.2 Lymphocytes % 19.2 Monocytes % 10.1 Eosinophils % 0.4 Basophils % 0.4 Nucleated Red Blood Cells % 0.0 Immature Granulocytes # 0.060 H Neutrophils # 5.8 Lymphocytes # 1.6 Monocytes # 0.8 Eosinophils # 0.0 Basophils # 0.0 Nucleated Red Blood Cells # 0.0 Sodium Level 139 Potassium Level 3.1 L Chloride Level 100 Carbon Dioxide Level 34 H Anion Gap 5 Blood Urea Nitrogen 13 Creatinine 0.71 Est Glomerular Filtrat Rate mL/min > 60 Glucose Level 125 Calcium Level 8.5 Phosphorus Level 4.3 Magnesium Level 2.3 Total Bilirubin 0.9 Direct Bilirubin 0.00 Indirect Bilirubin 0.9 Aspartate Amino Transf (AST/SGOT) 69 H Alanine Aminotransferase (ALT/SGPT) 121 H Alkaline Phosphatase 165 H Total Protein 7.8 Albumin 3.8 Globulin 4.00 H Albumin/Globulin Ratio 0.95 Triglycerides Level 105 Cholesterol Level 160 LDL Cholesterol, Calculated 111 HDL Cholesterol 28 Cholesterol/HDL Ratio 5.7 Thyroid Stimulating Hormone (TSH) 4.060 Hemoglobin A1c 5.7 Subjective 24 Hr Interval Summary Constitutional: no complaints (No fevers chills or sweats) ENT: no complaints Respiratory: no complaints Cardiovascular: no complaints Gastrointestinal: no complaints Genitourinary: no complaints Musculoskeletal: no complaints Skin: no complaints Exam/Review of Systems Exam Vitals Vital Signs Date Temp Pulse Resp B/P (MAP) Pulse Ox O2 O2 Flow FiO2 Time Delivery Rate 02/21/19 98.5 99 24 163/89 93 Nasal 07:25 (113) Cannula 02/21/19 2.0 01:46 02/20/19 30 23:34 Intake and Output 02/20/19 02/20/19 02/21/19 1515:00 23:00 07:00 IntakeIntake Total 1000 ml 1300 ml OutputOutput Total 400 ml BalanceBalance 1000 ml 900 ml Constitutional: alert, oriented, obese (Morbidly obese) Neck: supple, non-tender Respiratory: clear to auscultation, normal air movement Extremities: other (Left lower extremity cellulitis regressing from the inked margins) Results Results 24hrs Laboratory Tests Test 02/20/19 11:49 02/21/19 05:18 02/21/19 05:19 Lactic Acid Level 0.9 White Blood Count 8.3 Red Blood Count 4.46 L Hemoglobin 11.9 L Hematocrit 37.9 L Mean Corpuscular Volume 85.0 Mean Corpuscular Hemoglobin 26.7 L Mean Corpuscular Hemoglobin Concent 31.4 L Red Cell Distribution Width 15.2 H Platelet Count 249 Mean Platelet Volume 11.1 H Immature Granulocytes % 0.700 H Neutrophils % 69.2 Lymphocytes % 19.2 Monocytes % 10.1 Eosinophils % 0.4 Basophils % 0.4 Nucleated Red Blood Cells % 0.0 Immature Granulocytes # 0.060 H Neutrophils # 5.8 Lymphocytes # 1.6 Monocytes # 0.8 Eosinophils # 0.0 Basophils # 0.0 Nucleated Red Blood Cells # 0.0 Sodium Level 139 Potassium Level 3.1 L Chloride Level 100 Carbon Dioxide Level 34 H Anion Gap 5 Blood Urea Nitrogen 13 Creatinine 0.71 Est Glomerular Filtrat Rate mL/min > 60 Glucose Level 125 Calcium Level 8.5 Phosphorus Level 4.3 Magnesium Level 2.3 Total Bilirubin 0.9 Direct Bilirubin 0.00 Indirect Bilirubin 0.9 Aspartate Amino Transf (AST/SGOT) 69 H Alanine Aminotransferase (ALT/SGPT) 121 H Alkaline Phosphatase 165 H Total Protein 7.8 Albumin 3.8 Globulin 4.00 H Albumin/Globulin Ratio 0.95 Triglycerides Level 105 Cholesterol Level 160 LDL Cholesterol, Calculated 111 HDL Cholesterol 28 Cholesterol/HDL Ratio 5.7 Thyroid Stimulating Hormone (TSH) 4.060 Hemoglobin A1c 5.7 Medications Medication Current Medications Vancomycin HCl (Vanco Iv Per Pharmacy) VANCOMYCIN PER PHARMACY PER PROTOCOL XX ; Start 02/20/19 at 13:30 Levofloxacin/ Dextrose 100 ml @ 100 mls/hr Q24H IVPB Last administered on 02/20/19at 14:21; Admin Dose 100 MLS/HR; Start 02/20/19 at 13:30 Lactobacillus Acidophilus/ Rhamnosus (Culturelle) 1 cap BID PO Last administered on 02/21/19at 08:22; Admin Dose 1 CAP; Start 02/20/19 at 21:00 Docusate Sodium (Colace) 100 mg BID PO Last administered on 02/21/19 08:22; Admin Dose 100 MG; Start 02/20/19 at 21:00 Famotidine (Pepcid) 20 mg DAILY PO Last administered on 02/21/19at 08:22; Admin Dose 20 MG; Start 02/21/19 at 09:00 Enoxaparin Sodium (Lovenox) 40 mg DAILY SC Last administered on 02/21/19 08:22; Admin Dose 40 MG; Start 02/21/19 at 09:00 Hydralazine HCl (Apresoline) 10 mg Q6H PRN IV sbp>160mmhg Last administered on 02/21/19at 00:28; Admin Dose 10 MG; Start 02/20/19 at 16:30 Hydrochlorothiazide (Hydrochlorothiazide) 25 mg DAILY@0600 PO Last administered on 02/21/19at 06:16; Admin Dose 25 MG; Start 02/20/19 at 16:30 Acetaminophen (Tylenol Tab) 650 mg Q6H PRN PO MILD PAIN(1-3)OR ELEVATED TEMP Last administered on 02/20/19at 21:58; Admin Dose 650 MG; Start 02/20/19 at 21:30 Vancomycin/Sodium Chloride 250 ml @ 83.333 mls/ hr Q8H IVPB Last administered on 02/21/19 06:16; Admin Dose 83.333 MLS/HR; Start 02/20/19 at 23:00 Potassium Chloride 100 ml @ 50 mls/hr Q2H IVPB ; Start 02/21/19 at 07:30; Stop 02/21/19 at 11:29 Lisinopril (Zestril) 40 mg DAILY PO ; Start 02/22/19 at 09:00 Thiamine HCl (Vitamin B1) 100 mg DAILY PO ; Start 02/22/19 at 09:00 Thiamine HCl (Vitamin B1) 100 mg ONCE ONCE IM ; Start 02/21/19 at 11:00; Stop 02/21/19 at 11:01 CARMEN LY MD Feb 21, 2019 10:20
[2019-02-21] MEDS ORDERED: THIAMINE 200 MG INJ IM ONE (11:00)
[2019-02-21] MEDS: LEVOFLOXACIN 500MG/D5W (PMX) 100 ML IVPB SCH (15:31)
[2019-02-22 00:30] VITALS: BP 139/86; PULSE 98; RESP 17
[2019-02-22 05:55] VITALS: BP 140/90; PULSE 90; RESP 17
[2019-02-22] MEDS: HYDROCHLOROTHIAZIDE 25 MG TAB PO SCH (05:57)
[2019-02-22] MEDS: VANCOMYCIN 1.5 GM/NS 250 ML 250 ML IVPB SCH ×2 (06:19→15:12)
[2019-02-22 07:44] VITALS: BP 136/81; PULSE 89; PULSE 90; RESP 18
[2019-02-22] MEDS ORDERED: THIAMINE 100 MG TAB PO SCH (09:00)
[2019-02-22] MEDS ORDERED: LISINOPRIL 20 MG TAB PO SCH (09:00)
[2019-02-22] MEDS: FAMOTIDINE 20 MG TAB PO SCH (09:46)
[2019-02-22] MEDS: DOCUSATE SODIUM 100 MG CAP PO SCH (09:46)
[2019-02-22] MEDS: LACTOBACILLUS RHAMNOSUS CAP PO SCH (09:46)
[2019-02-22] MEDS: ENOXAPARIN 40 MG/0.4 ML SYG SC SCH (09:52)
[2019-02-22 11:51] VITALS: BP 132/78; PULSE 87; RESP 18
[2019-02-22] MEDS: LEVOFLOXACIN 500MG/D5W (PMX) 100 ML IVPB SCH (13:15)
[2019-02-22] MEDS ORDERED: POTASSIUM CHLORIDE (SR) 20 MEQ TAB PO STA (13:28)
--- NOTE | 2019-02-22 13:40 | DS ---
Date/Time of Note Date/Time of Note DATE: 02/22/19 TIME: 13:33 Discharge Summary Admission/Discharge Info Admit Date/Time Feb 20, 2019 at 09:14 Discharge Date/Time February 22, 2019 Discharge Diagnosis Left lower extremity cellulitis; morbid obesity; essential hypertension; snoring with probable obesity hypoventilation syndrome; fatty infiltration of the liver on ultrasound; alcohol consumption; marijuana usage; abnormal liver enzymes Patient Condition: Good Procedures Echocardiogram Conclusions: Technically difficult study with poor endocardial visualization in apical views. Normal left ventricular systolic function. Normal left ventricular cavity size. Mild concentric left ventricular hypertrophy. Ejection fraction is visually estimated at 60 %. Tissue Doppler/Mitral Doppler indices are within normal limits. No significant valvular stenosis or regurgitation seen. The estimated Peak RVSP is 26 mmHg. Normal size and normal respiratory collapse consistent with normal right atrial pressure. chest CT angiogram IMPRESSION: 1. No evidence for pulmonary embolism.. 2. Mild cardiomegaly. 3. Patchy bilateral air space opacities. Findings are likely infectious or inflammatory in etiology (i.e. pulmonary edema, multifocal pneumonia, pulmonary hemorrhage). Gallbladder ultrasound IMPRESSION: Hepatomegaly with diffuse fatty irritation of the liver. Lower extremity venous ultrasound IMPRESSION: No evidence of acute deep venous thrombosis of the left lower extremity. Hx of Present Illness HPI 29-year-old male with history of alcohol abuse, drinks about two 12 packs of beer per day, presents the ED complaining of fever, shortness of breath and palpitations. Patient was seen in the ED on 02/17/2019 for similar symptoms and diagnosed with pyelonephritis and discharged with antibiotics but symptoms have been worsening. Mild nonproductive cough. No hemoptysis. In triage he complained of chest pain but he further qualifies this feeling of shortness of breath but not actual pain. Denies abdominal pain, nausea, vomiting, diarrhea or constipation. Denies dysuria, polyuria, hematuria or flank pain. Mild lower extremity swelling with worsening, red, nonpainful rash on his left leg. Denies headache or neck pain. Subjective fevers and chills. Hx of Present Illness 29-year-old male who had presented to the emergency room with a 4 to 5-day history of worsening fever, lethargy and shortness of breath especially with exertion also limiting his ability to sleep. Patient does have a history of heavy alcohol use but no other significant past medical history. He is also morbidly obese. He came to the emergency room 4 days ago with similar symptoms and was treated for urinary tract infection. Of note is that he has a significant cellulitis in his left leg in the midportion, and he states that again that has been going on for about the past 4 days. Is localized only to his left leg though. It does not limit ambulation, he does not have pain out of proportion to touch. Hospital Course Pleasant gentleman who was admitted with extremity cellulitis. He was treated with IV antibiotics and had market improvement both clinically by regression of erythema and subjectively by his symptoms. He is stopped having fevers chills or sweats. At this time is improved to the point where he can be discharged on oral antibiotic therapy. He has no known communicable diseases he is not a hazard to himself or others he is, has capacity for medical decision-making. Please note that he has had extensive discussions about cessation of alcohol consumption, tobacco usage, and mechanisms for controlling his weight since this is having active impact on his day-to-day life Home Meds Active Scripts Phenazopyridine Hcl* (Pyridium*) 200 Mg Tab, 200 MG PO TID PRN for URINARY PAIN, #6 TAB Prov:PAWEL MUNOZ MD 02/17/19 Cephalexin* (Keflex*) 500 Mg Capsule, 500 MG PO QID for 10 Days, CAP Prov:PAWEL MUNOZ MD 02/17/19 Acetaminophen* (Tylophen*) 500 Mg Capsule, 2 CAP PO Q8H PRN for PAIN AND OR ELEVATED TEMP, #30 CAP Prov:PAWEL MUNOZ MD 02/17/19 Ibuprofen* (Motrin*) 800 Mg Tab, 800 MG PO Q6H PRN for PAIN AND OR ELEVATED TEMP, #30 TAB Prov:PAWEL MUNOZ MD 02/17/19 Follow-up Plan [facility] care physician in 10 days Primary Care Provider Care Physician No Primary Time spent on discharge: > 30 minutes Pending Labs Laboratory Tests Test 02/21/19 14:16 02/21/19 15:30 02/22/19 05:38 Vancomycin Level 9.2 Trough ug/ml (10.0-20.0) Urine Opiates Negative (NEGATIVE Screen ) Urine Barbiturates Negative (NEGATIVE ) Urine Amphetamines Negative (NEGATIVE Screen ) Urine Negative (NEGATIVE Benzodiazepines ) Screen Urine Cocaine Negative (NEGATIVE Screen ) Urine Cannabinoids Positive (NEGATIVE ) White Blood Count 10.5 10^3/ul (4.8-10.8) Red Blood Count 4.57 10^6/ul (4.70-6.10 ) Hemoglobin 12.0 g/dl (14.0-18.0) Hematocrit 39.6 % (42.0-52.0) Mean Corpuscular 86.7 Volume fl (82.0-101.0) Mean Corpuscular 26.3 Hemoglobin pg (29.0-33.0) Mean Corpuscular 30.3 Hemoglobin Concent g/dl (32.0-37.0) Red Cell 15.3 % (11.5-14.5) Distribution Width Platelet Count 283 10^3/UL (140-415) Mean Platelet 11.0 fl (7.4-10.4) Volume Immature 0.700 Granulocytes % % (0.001-0.429) Neutrophils % 72.2 % (39.0-77.0) Lymphocytes % 17.7 % (15.0-51.0) Monocytes % 8.0 % (0.0-11.0) Eosinophils % 0.9 % (0.0-7.0) Basophils % 0.5 % (0.0-2.0) Nucleated Red Blood 0.0 Cells % /100WBC (0.0-0.0) Immature 0.070 Granulocytes # 10^3/ul (0.0-0.031 ) Neutrophils # 7.6 10^3/ul (1.6-7.5) Lymphocytes # 1.9 10^3/ul (0.8-2.9) Monocytes # 0.8 10^3/ul (0.3-0.9) Eosinophils # 0.1 10^3/ul (0.0-0.5) Basophils # 0.1 10^3/ul (0.0-0.1) Nucleated Red Blood 0.0 Cells # 10^3/ul (0.0-0.0) Sodium Level 139 mmol/L (135-144) Potassium Level 3.5 mmol/L (3.5-5.1) Chloride Level 101 mmol/L (97-110) Carbon Dioxide 35 mmol/L (21-31) Level Anion Gap 3 (5-13) Blood Urea 19 mg/dl (7-20) Nitrogen Creatinine 0.85 mg/dl (0.61-1.24) Est Glomerular > 60 mL/min (>60) Filtrat Rate mL/min Glucose Level 117 mg/dl (70-220) Calcium Level 8.9 mg/dl (8.4-10.2) Total Bilirubin 0.8 mg/dl (0.2-1.3) Direct Bilirubin 0.00 mg/dl (0.00-0.20) Indirect Bilirubin 0.8 mg/dl (0-1.1) Aspartate Amino 112 IU/L (15-46) Transf (AST/SGOT) Alanine 175 IU/L (13-69) Aminotransferase (A LT/SGPT) Alkaline 154 IU/L (42-121) Phosphatase Total Protein 7.7 g/dl (6.1-8.1) Albumin 3.7 g/dl (3.3-4.9) Globulin 4.00 g/dl (1.3-3.2) Albumin/Globulin 0.92 Ratio CARMEN LY MD Feb 22, 2019 13:40
--- NOTE | 2019-02-22 13:43 | PDOCDIS ---
Discharge Instructions DIAGNOSIS Discharge Diagnosis Left lower extremity cellulitis; morbid obesity; essential hypertension; snoring with probable obesity hypoventilation syndrome; fatty infiltration of the liver on ultrasound; alcohol consumption; marijuana usage; abnormal liver enzymes CONDITION [id number] Patient Condition: [id number] Fair HOME CARE INSTRUCTIONS: [place] Diet Instructions: [id number] Reduced Calorie ACTIVITY: [id number] Activity Restrictions: [id number] Slowly Increase Activity FOLLOW UP/APPOINTMENTS Follow-up Plan Primary care physician in 10 days Return to work on February 24, 2019 CARMEN LY MD Feb 22, 2019 13:43
[2019-02-22] MEDS ORDERED: AZITHROMYCIN 500 MG TAB PO ONE (14:00)
[2019-02-22] MEDS ORDERED: TRIMETHOPRIM/SULFAMETHOX (DS) TAB PO ONE (14:00)
[2019-02-22 15:47] VITALS: BP 132/63; PULSE 102; RESP 18
== END 2019-02-22 18:35 | disposition home or self-care (01) | DRG 871 ==
LOC: E/R 06:29 → 6WM 09:14
PROVIDERS: ADMIT Family Medicine; ATTEND Family Medicine
DX: A41.9 Sepsis, unspecified organism (principal); J18.9 Pneumonia, unspecified organism; L03.116 Cellulitis of left lower limb; Z68.42 Body mass index [BMI] 45.0-49.9, adult; E66.2 Morbid (severe) obesity with alveolar hypoventilation; R00.2 Palpitations; F10.10 Alcohol abuse, uncomplicated; Z72.0 Tobacco use; E66.01 Morbid (severe) obesity due to excess calories; K76.0 Fatty (change of) liver, not elsewhere classified; F12.90 Cannabis use, unspecified, uncomplicated; I10 Essential (primary) hypertension; E87.6 Hypokalemia
CPT/HCPCS: 36415; 71045; 71275; 73590; 76705; 80053; 80061; 80202; 80307; 81003; 82088; 83036; 83605; 83735; 83880; 84100; 84244; 84443; 84484; 85025; 85378; 85610; 85730; 86140; 87070; 87086; 93005; 93306; 93971; 94660; 96374; 96375; J0360; J0744; J1650; J1940; J1956; J2185; J3370; J3411; J3480; J7030; J7040; Q9967